=== PATIENT | female | born 1940 | race Caucasian/White ===

== ENCOUNTER → 2020-07-01 | Outpatient (CLI) | payer MEDICARE ==
--- NOTE | 2020-07-12 14:51 | RAD ---
DATE: 07/01/2020 11:30 AM EXAM: MAMMO SUSHILA SCREENING BILATERAL HISTORY: 06/11/2018 COMPARISON: none Bilateral CC and MLO views of the breasts were performed. Bilateral breast tomosynthesis was performed in CC and MLO projections. This study was interpreted with the benefit of Computerized Aided Detection (CAD). FINDINGS: Breast Density: FATTY The Breast Parenchyma is primarily fatty replaced. Breast parenchyma level density A. No suspicious masses, microcalcifications or architectural distortion is present to suggest malignancy in either breast. The visualized axillae are unremarkable. IMPRESSION: No mammographic evidence of malignancy. BI-RADS CATEGORY: 1 NEGATIVE RECOMMENDED FOLLOW-UP: 12M 12 MONTH FOLLOW-UP Annual screening mammography is recommended, unless clinically indicated sooner based on symptoms or change in physical exam. PQRS compliance statement: Patient information was entered into a reminder system with a target due date for the next mammogram. Mammography is a sensitive method for finding small breast cancers, but it does not detect them all and is not a substitute for careful clinical examination. A negative mammogram does not negate a clinically suspicious finding and should not result in delay in biopsying a clinically suspicious abnormality. "Our facility is accredited by the [employer] Mammography [employer]."
== END ==
LOC: MAMMO 11:12
PROVIDERS: ATTEND Family Medicine
DX: Z12.31 Encounter for screening mammogram for malignant neoplasm of breast (principal)
CPT/HCPCS: 77063; 77067

== ENCOUNTER → 2021-02-18 | Outpatient (CLI) | payer MEDICARE ==
[~2021-02-18] MED LIST: IOHEXOL 350 MG/ML 100 ML VIAL. IV ONE
--- NOTE | 2021-02-18 10:03 | RAD ---
PQRS Compliance Statement: One or more of the following individualized dose reduction techniques were utilized for this examinat ion: 1. Automated exposure control 2. Adjustment of the mA and/or kV according to patient size 3. Use of iterative reconstruction technique CTA CHEST 02/18/2021 8:13 AM INDICATION: Nausea and sweating episodes. COMPARISON: None available TECHNIQUE: Axial CT images of the chest were obtained before and after the intravenous administration of nonionic contrast. Coronal and sagittal reformats are provided. Maximum intensity projection imag es of the thoracic vasculature are provided. FINDINGS: The thyroid gland is normal in appearance. There are no pathologically enlarged axillary, mediastinal or hilar lymph nodes. The heart size is within normal limits. No significant pericardial effusion. T horacic aorta is normal in course and caliber. Ascending thoracic aorta measures 3.9 cm. No findings to suggest aortic dissection. Mild calcified plaque is identified without significant stenosis of the organs of the celiac axis, superior mesenteric artery or renal arteries. Mild calcified plaque at th e origin the left subclavian artery. Otherwise, brachiocephalic arteries are widely patent. There is adequate opacification of the pulmonary arterial system. There there are no filling defects within the pulmonary arterial system to suggest acute or chronic pulmonary embolus. There are no suspicious solid noncalcified pulmonary nodules. There are no pulmonary infiltrates. The re are no pleural effusions. No pulmonary vascular congestion or pneumothorax. 4 mm calcified granulo ma in the right lower lobe. Calcified right hilar lymphadenopathy suggests prior granulomatous exposu re. There is bibasilar subsegmental atelectasis. Mild centrilobular pulmonary emphysema. Visualized portions of the upper abdomen are within normal limits. Small hiatal hernia. Simple cyst i n the lateral segment left hepatic lobe measures 1.4 cm. No suspicious osseous lesions are visualized . IMPRESSION: There is no evidence for acute or chronic pulmonary embolism. No evidence for aortic dissection or in tramural hematoma. Mild calcified atheromatous plaque at the origin of the left subclavian artery wit hout significant stenosis. No significant subclavian stenosis identified on the current examination. Mild centrilobular pulmonary emphysema. Bibasilar subsegmental atelectasis. Electronically signed by: Haydee Manzo MD (02/18/2021 10:01 AM) [id number]
== END ==
LOC: CT 08:11
DX: J43.2 Centrilobular emphysema (principal); J98.11 Atelectasis; I70.8 Atherosclerosis of other arteries; R11.0 Nausea; K44.9 Diaphragmatic hernia without obstruction or gangrene; K76.89 Other specified diseases of liver
CPT/HCPCS: 71275; Q9967

== ENCOUNTER → 2021-07-26 | Outpatient (CLI) | payer MEDICARE ==
--- NOTE | 2021-07-26 13:14 | RAD ---
Bilateral digital screening mammogram to include digital breast tomosynthesis (3-D mammography) 07/26 CLINICAL HISTORY: Screening study. Digital MLO and CC mammograms of both breasts were obtained. Additionally digital breast tomosynthesi s images (3-D mammography) of both breasts in the CC and MLO projections were obtained. Comparison study is dated 07/01/2020. The breast parenchyma is heterogeneously dense which could obscure a lesion on mammography (breast de nsity C). A loop recorder has been placed into the left breast. Benign-appearing calcifications are s een within both breasts. No spiculated mass is seen. No malignant appearing calcification or area of architectural distortion is noted. Digital breast tomosynthesis images demonstrate no spiculated mass. No malignant appearing calcificat ion is seen. Impression: BI-RADS Category 1: Negative. There is no mammographic evidence of malignancy. Routine y early screening mammography is recommended for follow-up. This examination was reviewed with the aid of computer-aided detection. A mammogram does not have 100% sensitivity and therefore a negative imaging study should not delay fu rther work up of a suspicious abnormality. Patient information is entered into the reminder system with a target due date for the next screening mammogram of 07/26/2022. "Our facility is accredited by the [employer] Mamm[employer]." Electronically signed by: John Hopper MD (07/26/2021 1:12 PM) [id number]
== END ==
LOC: MAMMO 11:23
PROVIDERS: ATTEND Family Medicine
DX: Z12.31 Encounter for screening mammogram for malignant neoplasm of breast (principal)
CPT/HCPCS: 77063; 77067